=== PATIENT | female | born 1960 | race Caucasian/White ===

== ENCOUNTER 2019-08-06 07:15 | Emergency (ER) | payer OTHER ==
[2019-08-06 07:28] VITALS: PULSE 75; TEMP 98.1
[2019-08-06] MEDS ORDERED: HYDROcodone/APAP 5-325MG 1 EACH TAB PO STA (07:36)
--- NOTE | 2019-08-06 07:40 | ED ---
Lower Extremity Injury HPI - General Chief Complaint: Extremity Injury, Lower Stated Complaint: L Knee Swelling Time Seen by Provider: 08/06/19 07:30 Source: patient, RN notes reviewed Mode of arrival: wheelchair Limitations: no limitations - History of Present Illness Initial Comments: This a 59-year-old female presents emergency Department chief complaint of left leg and knee pain. Patient states that has been bothersome or last couple days denies any trauma. Patient does admit that she has a large amount of varicose pains her left leg but has no history of DVT. Patient denies any chest pain or shortness breath. She states that she did take some Motrin last night she had minimal relief of symptoms. She did state that she elevated and iced it which improved her swelling. Patient states that she had no prior imaging her left leg including ultrasound or x-ray. Patient denies trauma she does admit that walking makes her symptoms worse. - Related Data Home Medications Medication Instructions Recorded Confirmed Ibuprofen [Motrin] 800 mg PO Q6H PRN 08/06/19 08/06/19 Turmeric Root Extract [Turmeric] 500 mg PO DAILY 08/06/19 08/06/19 Allergies Allergy/AdvReac Type Severity Reaction Status Date / Time No Known Allergies Allergy Verified 08/06/19 08:09 Review of Systems ROS Statement: Those systems with pertinent positive or pertinent negative responses have been documented in the HPI. ROS Other: All systems not noted in ROS Statement are negative. Past Medical History Past Medical History: No Reported History History of Any Multi-Drug Resistant Organisms: None Reported Past Surgical History: Section Additional Past Surgical History / Comment(s): carpal tunnel surgery Past Psychological History: No Psychological Hx Reported Smoking Status: Current every day smoker Past Alcohol Use History: None Reported Past Drug Use History: Marijuana General Exam Limitations: no limitations General appearance: alert, in no apparent distress Head exam: Present: atraumatic, normocephalic, normal inspection Respiratory exam: Present: normal lung sounds bilaterally. Absent: respiratory distress, wheezes, rales, rhonchi, stridor Cardiovascular Exam: Present: regular rate, normal rhythm, normal heart sounds. Absent: systolic murmur, diastolic murmur, rubs, gallop, clicks Extremities exam: Present: other (Left knee patient reports some tenderness palpation medial and posterior aspect there is swelling noted of the left leg. Pulses are equal bilaterally there is minimal calf tenderness. Patient has full range of motion of the left hip left knee and left ankle.) Course Vital Signs 08/06/19 07:25 Temperature 98.1 F Pulse Rate 75 Respiratory 18 Rate Blood Pressure 129/83 O2 Sat by Pulse 96 Oximetry Medical Decision Making - Medical Decision Making This a 59-year-old female presented for left knee and leg pain. Patient ultrasound and x-ray. All son shows no evidence of acute DVT does show evidence of a Armstrong's cyst. X-ray is essentially unremarkable. She has neurovascular intact. Patient will follow-up with orthopedics as needed patient advised continued anti-inflammatories. Return parameters were discussed. Disposition Clinical Impression: Left knee pain, Synovial cyst of popliteal space [Armstrong], left knee Disposition: HOME SELF-CARE Condition: Stable Instructions (If sedation given, give patient instructions): Bakers Cyst (ED) Additional Instructions: Please return to the Emergency Department if symptoms worsen or any other concerns. Is patient prescribed a controlled substance at d/c from ED?: No Referrals: None,Stated [Primary Care Provider] - 1-2 days Edmar Lambert MD [STAFF PHYSICIAN] - 1-2 days Time of Disposition: 08:55
--- NOTE | 2019-08-06 08:04 | US ---
EXAMINATION TYPE: US venous doppler duplex LE LT DATE OF EXAM: 08/06/2019 7:57 AM COMPARISON: NONE CLINICAL HISTORY: left knee pain and leg swelling. Pt states left leg pain and swelling x 1 1/2 weeks SIDE PERFORMED: Left TECHNIQUE: The lower extremity deep venous system is examined utilizing real time linear array sonog celina with graded compression, doppler sonography and color-flow sonography. VESSELS IMAGED: External Iliac Vein (EIV) Common Femoral Vein Deep Femoral Vein Greater Saphenous Vein * Femoral Vein Popliteal Vein Small Saphenous Vein * Proximal Calf Veins (* superficial vessels) Left Leg: Negative for DVT, Probable Armstrong's cyst left pop fossa= 4.6 x 0.7 x 2.1 cm Grayscale, color doppler, spectral doppler imaging performed of the deep veins of the left lower extr emity. There is normal flow, compressibility, vascular waveforms. IMPRESSION: No ultrasound evidence for acute DVT in the left lower extremity. Small popliteal cyst i s marked towards end of study.
--- NOTE | 2019-08-06 08:22 | XR ---
Left knee HISTORY: Swelling, pain 3 views the left knee Bone mineralization, joint spaces, alignment are maintained. No fracture or dislocation. No evident j oint effusion. Suspect vascular calcifications are present. IMPRESSION: No acute abnormality is evident.
[2019-08-06] MEDS ORDERED: ACET/COD 300 MG/30 MG STARTER PACK 6 TAB BTL PO STA (08:55)
[2019-08-06 09:07] VITALS: BP 125/80; RESP 16
== END 2019-08-06 09:03 | disposition home or self-care (01) ==
LOC: EC 07:15
DX: M71.22 Synovial cyst of popliteal space [Baker], left knee (principal); F17.200 Nicotine dependence, unspecified, uncomplicated; Z53.29 Procedure and treatment not carried out because of patient's decision for other reasons; Z79.899 Other long term (current) drug therapy
CPT/HCPCS: 99284

== ENCOUNTER → 2021-07-30 | Outpatient (CLI) | payer OTHER ==
--- NOTE | 2021-07-30 07:49 | MR ---
EXAMINATION TYPE: MR knee LT wo con DATE OF EXAM: 07/30/2021 COMPARISON: Outside left knee x-ray June 03, 2021 HISTORY: Left knee pain and swelling x 2 years, no trauma. TECHNIQUE: Multiplanar, multisequence imaging of the left knee is performed without IV contrast. FINDINGS: MEDIAL MENISCUS: Abnormal medial meniscus. There is medial extrusion of medial meniscus with abnormal signal, there is globular and oblique component extends extending to central body from posterior hor n with fraying of the inferior margin. LATERAL MENISCUS: Anterior and posterior horns are intact without tear. CRUCIATE LIGAMENTS: The anterior and posterior cruciate ligaments are intact and unremarkable. COLLATERAL LIGAMENTS: The medial collateral ligament and lateral collateral ligament complex are inta ct. Medial extruded medial meniscus abuts the medial collateral ligament deeper fibers. EXTENSOR MECHANISM: Visualized quadriceps and patellar tendons are intact. EFFUSION: Small suprapatellar joint effusion. POPLITEAL CYST: Moderate size multiseptated popliteal/dutta cyst measuring 5.2 cm long axis sagittal image 25. TRICOMPARTMENT SPACES: Mild to moderate tricompartment joint space loss and mild tricompartment spurr ing. CARTILAGE: Thinning articular cartilage along posterior patellar pole. No full-thickness loss seen. C artilaginous thinning medial tibiofemoral compartment. BONE MARROW SIGNAL: In the distal lateral femoral condyle there is serpiginous low T1 and increased T 2 signal along the posterior aspect extending to the joint space sagittal image 12 for reference. No radiographic correlate clearly seen. No bony fragmentation. Lesion measures roughly 2.5 x 0.7 x 1.3 c m coronal image 22 and sagittal image 12. OTHER: No additional significant abnormality is appreciated. IMPRESSION: 1. Complex full-thickness tear involving central body and posterior horn medial meniscus. 2. Mild to moderate tricompartment degenerative changes as detailed above. 3. Small prepatellar joint effusion. 4. Moderate-sized multiseptated popliteal cyst. 5. Indeterminate lesion suspect chronic subchondral insufficiency fracture versus small bone infarct distal lateral femoral condyle level. No bony fragmentation noted.
== END | disposition home or self-care (01) ==
LOC: RADMRIMAIN 06:52
PROVIDERS: ATTEND Orthopaedic Surgery
DX: M23.322 Other meniscus derangements, posterior horn of medial meniscus, left knee (principal); M17.12 Unilateral primary osteoarthritis, left knee; M71.22 Synovial cyst of popliteal space [Baker], left knee

== ENCOUNTER 2021-09-08 01:14 | Emergency (ER) | payer OTHER ==
[2021-09-08 01:22] VITALS: TEMP 97.9
[2021-09-08] MEDS ORDERED: SODIUM CHLORIDE 0.9% 1,000 ML IV STA (01:31)
[2021-09-08] MEDS ORDERED: KETOROLAC 15 MG/ML 1 ML VIAL IVP STA (01:31)
[2021-09-08] MEDS ORDERED: ACETAMINOPHEN TAB 500 MG TAB PO STA (01:31)
[2021-09-08] MEDS ORDERED: DEXAMETHASONE SOD PHOSPHATE 10 MG/ML 1 ML VIAL IV STA (01:31)
--- NOTE | 2021-09-08 01:32 | ED ---
Recheck HPI - General Chief Complaint: Upper Respiratory Infection Stated Complaint: Headache, Covid+ Time Seen by Provider: 09/08/21 01:26 Source: patient, RN notes reviewed, old records reviewed Mode of arrival: ambulatory Limitations: no limitations - History of Present Illness Initial Comments: This is a 61-year-old female to the emergency department for evaluation of coronavirus. Patient has no history of coronavirus and presenting for evaluatio n of coronavirus today. Worsening symptoms worsening bodyaches and pains and fever. Some shortness of breath. MD Complaint: wound re-check, abnormal lab (Positive for coronavirus) -: days(s) Returns Today for: persistent/worsening pain related to initial visit Symptoms Since Prior Visit: no new symptoms Context: called for abnormal lab result Associated Symptoms: fever, chills, shortness of breath Treatments Prior to Arrival: home treatments - Related Data Home Medications Medication Instructions Recorded Confirmed Ibuprofen [Motrin] 800 mg PO Q6H PRN 08/06/19 08/06/19 Turmeric Root Extract [Turmeric] 500 mg PO DAILY 08/06/19 08/06/19 Allergies Allergy/AdvReac Type Severity Reaction Status Date / Time No Known Allergies Allergy Verified 09/08/21 01:22 Review of Systems ROS Statement: Those systems with pertinent positive or pertinent negative responses have been documented in the HPI. ROS Other: All systems not noted in ROS Statement are negative. Past Medical History Past Medical History: No Reported History History of Any Multi-Drug Resistant Organisms: None Reported Past Surgical History: Section Additional Past Surgical History / Comment(s): carpal tunnel surgery Past Psychological History: No Psychological Hx Reported Smoking Status: Current every day smoker Past Alcohol Use History: None Reported Past Drug Use History: Marijuana General Exam Limitations: no limitations General appearance: alert, in no apparent distress Head exam: Present: atraumatic, normocephalic, normal inspection Eye exam: Present: normal appearance, PERRL, EOMI. Absent: scleral icterus, conjunctival injection, periorbital swelling ENT exam: Present: normal exam, mucous membranes moist Neck exam: Present: normal inspection. Absent: tenderness, meningismus, lymphadenopathy Respiratory exam: Present: normal lung sounds bilaterally. Absent: respiratory distress, wheezes, rales, rhonchi, stridor Cardiovascular Exam: Present: regular rate, normal rhythm, normal heart sounds. Absent: systolic murmur, diastolic murmur, rubs, gallop, clicks GI/Abdominal exam: Present: soft, normal bowel sounds. Absent: distended, tenderness, guarding, rebound, rigid Extremities exam: Present: normal inspection, full ROM, normal capillary refill. Absent: tenderness, pedal edema, joint swelling, calf tenderness Back exam: Present: normal inspection Neurological exam: Present: alert, oriented X3, CN II-XII intact Psychiatric exam: Present: normal affect, normal mood Skin exam: Present: warm, dry, intact, normal color. Absent: rash Course Vital Signs 09/08/21 09/08/21 09/08/21 01:18 03:00 04:49 Temperature 97.9 F Pulse Rate 79 74 70 Respiratory 20 18 18 Rate Blood Pressure 125/79 117/73 120/71 O2 Sat by Pulse 96 98 96 Oximetry - Reevaluation(s) Reevaluation #1: 1Medical record is reviewed Patient symptoms are significantly improved Patient family informed results questions answered Medical Decision Making - Medical Decision Making 61 female positive for coronavirus. No other significant acute distress. Patient can be discharged home - Lab Data Result diagrams: 09/08/21 01:38 09/08/21 01:38 Lab Results 09/08/21 09/08/21 Range/Units 01:38 01:38 WBC 4.6 (3.8-10.6) k/uL RBC 4.12 (3.80-5.40) m/uL Hgb 13.5 (11.4-16.0) gm/dL Hct 39.0 (34.0-46.0) % MCV 94.5 (80.0-100.0) fL MCH 32.7 (25.0-35.0) pg MCHC 34.5 (31.0-37.0) g/dL RDW 13.8 (11.5-15.5) % Plt Count 221 (150-450) k/uL MPV 7.5 Neutrophils % 44 % Lymphocytes % 44 % Monocytes % 5 % Eosinophils % 3 % Basophils % 1 % Neutrophils # 2.0 (1.3-7.7) k/uL Lymphocytes # 2.0 (1.0-4.8) k/uL Monocytes # 0.2 (0-1.0) k/uL Eosinophils # 0.1 (0-0.7) k/uL Basophils # 0.0 (0-0.2) k/uL Sodium 138 (137-145) mmol/L Potassium 3.8 (3.5-5.1) mmol/L Chloride 111 H (98-107) mmol/L Carbon Dioxide 21 L (22-30) mmol/L Anion Gap 6 mmol/L BUN 13 (7-17) mg/dL Creatinine 0.50 L (0.52-1.04) mg/dL Est GFR (CKD-EPI)AfAm >90 (>60 ml/min/1.73 sqM) Est GFR (CKD-EPI)NonAf >90 (>60 ml/min/1.73 sqM) Glucose 105 H (74-99) mg/dL Calcium 8.1 L (8.4-10.2) mg/dL Magnesium 1.9 (1.6-2.3) mg/dL Total Bilirubin <0.1 L (0.2-1.3) mg/dL AST 27 (14-36) U/L ALT 19 (4-34) U/L Alkaline Phosphatase 51 (38-126) U/L Lactate Dehydrogenase 440 (313-618) U/L C-Reactive Protein 0.5 (<1.0) mg/dL Total Protein 5.6 L (6.3-8.2) g/dL Albumin 3.1 L (3.5-5.0) g/dL - Radiology Data Radiology results: report reviewed (Chest x-rays negative for acute disease), image reviewed Disposition Clinical Impression: Coronavirus infection Disposition: HOME SELF-CARE Condition: Good Instructions (If sedation given, give patient instructions): Coronavirus Disease 2019 (COVID-19) Is patient prescribed a controlled substance at d/c from ED?: No Referrals: None,Stated [Primary Care Provider] - 1-2 days
--- NOTE | 2021-09-08 02:05 | XR ---
EXAMINATION TYPE: XR chest 1V portable DATE OF EXAM: 09/08/2021 COMPARISON: 08/26/2010 HISTORY: Cough and fever TECHNIQUE: FINDINGS: Heart and mediastinum are normal. Lungs are clear of infiltrate. There is no pleural effusi on. There are no hilar masses. Bony thorax is intact. IMPRESSION: Normal chest. No change.
[2021-09-08 02:08] LABS: Basophils % (A) 1 %; Eosinophils # (A) 0.1 k/uL (0-0.7); Eosinophils % (A) 3 %; HGB 13.5 gm/dL (11.4-16.0); Lymphocytes % (A) 44 %; MCH 32.7 pg (25.0-35.0); MCHC 34.5 g/dL (31.0-37.0); MCV 94.5 fL (80.0-100.0); Mean Platelet Volume 7.5; Monocytes # (A) 0.2 k/uL (0-1.0); Monocytes % (A) 5 %; Neutrophils % (A) 44 %; Platelet Count 221 k/uL (150-450); RBC 4.12 m/uL (3.80-5.40); RDW 13.8 % (11.5-15.5); WBC 4.6 k/uL (3.8-10.6)
[2021-09-08 02:26] LABS: ALT 19 U/L (4-34); AST 27 U/L (14-36); African American GFR (CKD) >90 (>60 ml/min/1.73 sqM); Albumin 3.1 g/dL (3.5-5.0); Alkaline Phosphatase 51 U/L (38-126); Anion Gap 6 mmol/L; Blood Urea Nitrogen 13 mg/dL (7-17); C Reactive Protein 0.5 mg/dL (<1.0); Calcium 8.1 mg/dL (8.4-10.2); Carbon Dioxide 21 mmol/L (22-30); Chloride 111 mmol/L (98-107); Glucose 105 mg/dL (74-99); LDH 440 U/L (313-618); Magnesium 1.9 mg/dL (1.6-2.3); Non-African American GFR(CKD) >90 (>60 ml/min/1.73 sqM); Potassium 3.8 mmol/L (3.5-5.1); Sodium 138 mmol/L (137-145); Total Bilirubin <0.1 mg/dL (0.2-1.3); Total Protein 5.6 g/dL (6.3-8.2)
[2021-09-08] MEDS ORDERED: CASIRIVIMAB (REGN10933) (EUA) 600 MG, IMDEVIMAB (REGN10987) (EUA) 600 MG in SODIUM CHLO... IVPB ONE (03:00)
[2021-09-08] MEDS ORDERED: SODIUM CHLORIDE 0.9% 50 ML IVPB ONE (03:00)
[2021-09-08 04:49] VITALS: RESP 18
[2021-09-08 04:50] VITALS: BP 120/71; PULSE 70
== END 2021-09-08 04:50 | disposition home or self-care (01) ==
LOC: EC 01:14
DX: U07.1 COVID-19 (principal); F17.200 Nicotine dependence, unspecified, uncomplicated; F12.90 Cannabis use, unspecified, uncomplicated
CPT/HCPCS: 99285; 96365; 96375 ×2; 96361; 36415; 80053; 83615; 83735; 85025; 86140; 71045; J1100; J1885; Q0243

== ENCOUNTER → 2021-09-20 | Outpatient (CLI) | payer OTHER ==
[2021-09-20 09:40] LABS: Basophils # (A) 0.1 k/uL (0-0.2); Basophils % (A) 0 %; Eosinophils # (A) 0.2 k/uL (0-0.7); Eosinophils % (A) 1 %; HCT 38.8 % (34.0-46.0); HGB 12.9 gm/dL (11.4-16.0); Lymphocytes # (A) 2.8 k/uL (1.0-4.8); Lymphocytes % (A) 22 %; MCH 32.2 pg (25.0-35.0); MCHC 33.3 g/dL (31.0-37.0); MCV 96.6 fL (80.0-100.0); Mean Platelet Volume 7.4; Monocytes # (A) 0.5 k/uL (0-1.0); Monocytes % (A) 4 %; Neutrophils # (A) 9.2 k/uL (1.3-7.7); Neutrophils % (A) 71 %; Platelet Count 340 k/uL (150-450); RBC 4.01 m/uL (3.80-5.40); RDW 13.6 % (11.5-15.5); WBC 12.9 k/uL (3.8-10.6)
[2021-09-20 10:10] LABS: Potassium 4.1 mmol/L (3.5-5.1)
== END | disposition home or self-care (01) ==
LOC: LABPAT 08:51
PROVIDERS: ATTEND Orthopaedic Surgery
DX: Z01.812 Encounter for preprocedural laboratory examination (principal)
CPT/HCPCS: 36415; 80051; 85025; 93005

== ENCOUNTER 2021-09-29 11:27 | Day surgery (SDC) | payer OTHER ==
[~2021-09-29 11:27] MED LIST: DEXAMETHASONE SOD PHOSPHATE 4 MG/ML 1 ML VIAL IV ONE; LACTATED RINGERS 1,000 ML IV SCH; LIDOCAINE 1% (10MG/ML) FOR IV START INTRADERMA PRN; MIDAZOLAM 2 MG/2 ML VIAL IV PRN; ONDANSETRON 4 MG/2 ML VIAL IVP ONE
--- NOTE | 2021-09-29 11:31 | HP ---
HISTORY AND PHYSICAL CHIEF COMPLAINT: Left knee pain. 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 She notes medial pain along with swelling, catching and giving way. She notes it bothers her daily. She has tried previous medications in addition to an injection, with only partial temporary relief. PAST MEDICAL HISTORY: Negative. PAST SURGICAL HISTORY: Significant for section and carpal tunnel release. CURRENT MEDICATIONS: Ibuprofen. ALLERGIES: SHE DENIES DRUG ALLERGIES. FAMILY HISTORY: Significant for heart disease and cancer. SOCIAL HISTORY: Significant for 1/4 pack per day tobacco use. REVIEW OF SYSTEMS: Sixteen-point review of systems otherwise reviewed and is noncontributory. PHYSICAL EXAMINATION: On examination, the patient is approximately 5 feet 3 inches, 160 pounds of mesomorphic habitus. HEENT exam is nonfocal. Neck is supple. She has painless passive motion of her left hip. Straight-leg raise is negative. Active motion of left knee: Minus 10 to 105 degrees of flexion. She has mild effusion. She is tender about the medial joint line. Collaterals are stable. Fidelina is negative. Roderick's elicits medial pain. Her distal neurovascular exam appears intact in the left lower extremity. MRI report left knee 07/30/2021 shows evidence of a posteromedial meniscal tear in addition to lateral femoral condyle edema. IMPRESSION: 1. Internal derangement of left knee with symptomatic medial meniscal tear. 2. Left knee moderate medial compartment osteoarthrosis. RECOMMENDATIONS: I talked to the patient at length regarding her condition along with treatment options. She is having significant pain and mechanical symptoms despite previous conservative measures. After thorough discussion, she opted to proceed with surgery. We will plan to proceed with left knee arthroscopy with probable partial medial meniscectomy. Risks and benefits were discussed at length in layman's terms. We will likely perform that as an outpatient procedure. MMODL / IJN: [id number] /
[2021-09-29] MEDS ORDERED: PROPOFOL 10 MG/ML 20 ML VIAL IV ONE (12:52)
[2021-09-29] MEDS ORDERED: LIDOCAINE 1% INJ 10MG/ML (20 ML MDV) ONE (12:52)
[2021-09-29] MEDS ORDERED: fentaNYL (PF) 50 MCG/ML 2 ML AMP ONE (12:52)
[2021-09-29] MEDS ORDERED: KETOROLAC 15 MG/ML 1 ML VIAL ONE (12:52)
[2021-09-29] MEDS ORDERED: MIDAZOLAM 2 MG/2 ML VIAL ONE (12:52)
--- NOTE | 2021-09-29 13:43 | P.OP ---
Date of Procedure: 09/29/21 Preoperative Diagnosis: Left knee internal derangement Postoperative Diagnosis: Left knee posterior medial meniscal tear Procedure(s) Performed: Left knee arthroscopic partial medial meniscectomy Anesthesia: GUIA Surgeon: Teo Marshall Estimated Blood Loss (ml): 10 Pathology: none sent Condition: stable Disposition: PACU Indications for Procedure: The patient's a 61-year-old female presents with progressive left knee pain and mechanical symptoms despite conservative measures. A discussion of the risks and benefits of operative intervention versus continued conservative measures was made with patient. She to proceed with surgery. Operative risks to include infection, neurovascular injury, development blood clots, possible incomplete resolution of symptoms, possible worsening symptoms and need for subsequent procedures was discussed. Informed consent was obtained. Operative Findings: As below Description of Procedure: The patient was brought to the operating room, and after induction of general anesthesia examined the left knee. Collaterals were stable, Fidelina was negative, and posterior drawer was negative. The left lower extremity was prepped and draped in a normal fashion. A superior lateral portal was made through a 3 mm skin incision superior and lateral to the patella. This was used for outflow. A lateral portal was made through a 5 mm vertical skin incision lateral to the patella tendon above the joint line. Diagnostic arthroscopy was performed. On inspection of the medial compartment, a complex tear involving the posterior horn of the medial meniscus in the white-red junction was noted. This was debrided back to stable base with straight baskets and a motorized shaver. Grade 2-3 chondral changes were noted diffusely in the medial compartment. On inspection of the notch, the anterior cruciate ligament appeared to be intact. On inspection of the lateral compartment, no significant meniscal or cartilage pathology was noted. On inspection of the patellofemoral articulation, there is chondral fibrillation and degenerative changes however no loose chondral fragments.. The gutters were clear debris. The knee was then thoroughly irrigated. The portals were closed with Steri- Strips. A sterile dressing was applied in addition to a compression stocking. The patient was awoken from general anesthesia and transferred to recovery room in good condition. Blood loss was estimated at 10 mL. No complications were incurred.
[2021-09-29] MEDS: HYDROmorphone 0.5 MG/0.5 ML SYRINGE IVP PRN ×3 (14:06→14:23)
[2021-09-29 14:14] VITALS: TEMP 96.8
[2021-09-29 15:05] VITALS: RESP 18
[2021-09-29 15:08] VITALS: BP 116/73; PULSE 77
== END 2021-09-29 15:28 | disposition home or self-care (01) ==
LOC: OR 11:27
PROVIDERS: ATTEND Orthopaedic Surgery
DX: Z98.891 History of uterine scar from previous surgery (principal); M23.92 Unspecified internal derangement of left knee; Z98.890 Other specified postprocedural states; Z79.1 Long term (current) use of non-steroidal anti-inflammatories (NSAID); Z82.49 Family history of ischemic heart disease and other diseases of the circulatory system; Z80.9 Family history of malignant neoplasm, unspecified; F17.210 Nicotine dependence, cigarettes, uncomplicated; Z88.5 Allergy status to narcotic agent; Z88.8 Allergy status to other drugs, medicaments and biological substances; Z97.2 Presence of dental prosthetic device (complete) (partial)
CPT/HCPCS: 29881; J2250; J1100; J2405; J0690; J2001; J3010; J1885; J2704; J1170

== ENCOUNTER 2024-06-08 21:33 | Emergency (ER) | payer OTHER ==
[2024-06-08 22:37] VITALS: RESP 18; TEMP 97.2
--- NOTE | 2024-06-09 00:11 | ED ---
Extremity Problem HPI - General Chief complaint: Skin/Abscess/Foreign Body Stated complaint: Right foot injury Time Seen by Provider: 06/08/24 23:39 Source: patient, RN notes reviewed Mode of arrival: ambulatory Limitations: no limitations - History of Present Illness Initial comments: This is a 64-year-old female who presents to the emergency department for right foot pain. States that last night she was walking around with her flip-flops on and at one point while she was walking she developed a severe pain going to the right heel. States that this felt like a knife stabbing her in the foot. She since had pain with ambulation to the heel. States that she noticed a dark spot on the foot and wonders if this may be something that went inside of the foot, however this is not where the pain is located. MD Complaint: extremity pain - Related Data Home Medications Medication Instructions Recorded Confirmed Ibuprofen [Motrin] 800 mg PO Q6H PRN 08/06/19 09/29/21 Turmeric Root Extract [Turmeric] 500 mg PO DAILY 08/06/19 09/29/21 Loratadine [Claritin] 1 tab PO DAILY 09/29/21 09/29/21 Previous Rx's Medication Instructions Recorded Ibuprofen 600 mg PO Q8H #60 tab 09/29/21 Allergies Allergy/AdvReac Type Severity Reaction Status Date / Time codeine AdvReac Itching Verified 09/29/21 12:04 Review of Systems ROS Statement: Those systems with pertinent positive or pertinent negative responses have been documented in the HPI. ROS Other: All systems not noted in ROS Statement are negative. Past Medical History Past Medical History: No Reported History History of Any Multi-Drug Resistant Organisms: None Reported Past Surgical History: Section Additional Past Surgical History / Comment(s): carpal tunnel surgery Past Psychological History: No Psychological Hx Reported Smoking Status: Current every day smoker Past Alcohol Use History: None Reported Past Drug Use History: Marijuana General Exam Limitations: no limitations General appearance: alert, in no apparent distress Head exam: Present: atraumatic, normocephalic, normal inspection Respiratory exam: Present: normal lung sounds bilaterally. Absent: respiratory distress, wheezes, rales, rhonchi, stridor Cardiovascular Exam: Present: regular rate, normal rhythm, normal heart sounds. Absent: systolic murmur, diastolic murmur, rubs, gallop, clicks Extremities exam: Present: other (No deformities, swelling, or ecchymosis to the right foot. There was a small black dot that wiped away, otherwise no obvious foreign bodies. Full range of motion. 2+ DP and PT pulses.) Neurological exam: Present: alert, oriented X3, CN II-XII intact Psychiatric exam: Present: normal affect, normal mood Course Vital Signs 06/08/24 06/09/24 22:28 00:48 Temperature 97.2 F L Pulse Rate 75 72 Respiratory 18 18 Rate Blood Pressure 133/82 125/98 O2 Sat by Pulse 95 95 Oximetry Medical Decision Making - Medical Decision Making This is a 64 year old female who presents to the emergency department for right foot pain. Was pt. sent in by a medical professional or institution? @ -No Did you speak to anyone other than the patient for history? @ -No Did you review nursing and triage notes? @ -Yes, and I agree, it is accurate with regards to the patient's symptoms. Were old charts reviewed? @ -No Differential Diagnosis? @ -Differential Musculoskeletal: Muscular strain, contusion, ligament sprain, fracture, arthritis, septic arthritis, bursitis, cellulitis, muscle spasm, nerve compression, DVT, arterial occlusion, herpes zoster, electrolyte abnormality, tumor.... This is not meant to be in all inclusive list EKG interpreted by me (3pts min.)? @ -Not obtained X-rays interpreted by me (1pt min.)? @ -X-ray of the right foot obtained. My interpretation identifies no acute fractures. CT interpreted by me (1pt min.)? @ -Not obtained U/S interpreted by me (1pt. min.)? @ -Not obtained What testing was considered but not performed? (CT, X-rays, U/S, labs)? Why? @ -None What meds were considered but not given? Why? @ -None Did you discuss the management of the patient with other professionals? @ -No Did you reconcile home meds? @ -No Was smoking cessation discussed for >3mins.? @ -I discussed smoking cessation for greater than 3 minutes. The risk of s moking were discussed with the patient including but not limited to risks of cancer, stroke, coronary artery disease and COPD. Also discussed with patient were multiple methods of quitting smoking. Lastly we discussed the financial cost of smoking. Was critical care preformed (if so, how long)? @ -No Were there social determinants of health that impacted care today? How? (Homelessness, low income, unemployed, alcoholism, drug addiction, transportation, low edu. Level, literacy, decrease access to med. care, longterm, rehab)? @ -No Was there de-escalation of care discussed even if they declined? (Discuss DNR or withdrawal of care, Hospice)? @ -No What co-morbidities impacted this encounter? (DM, HTN, Smoking, COPD, CAD, Cancer, CVA, Hep., AIDS, mental health diagnosis, sleep apnea, morbid obesity)? @ -Smoking Was patient admitted / discharged? @ -Discharged. X-ray of the right foot obtained revealing no acute process. She has noted to have a heel spur. Toradol administered for pain relief. On exam there was a black dot that could have been a foreign body, however this wiped right off and was more so suggestive of a piece of dirt. Physical examination was otherwise unremarkable aside from tenderness. I did offer a hard sole velcro shoe, however she declined. Advised to continue with ibuprofen and Tylenol and follow-up with her primary care provider. Undiagnosed new problem with uncertain prognosis? @ -None Drug Therapy requiring intensive monitoring for toxicity (Heparin, Nitro, Insulin, Cardizem)? @ -None Were any procedures done? @ -None Diagnosis/symptom? @ -Right foot pain, heel spur Acute, or Chronic, or Acute on Chronic? @ -Acute Uncomplicated (without systemic symptoms) or Complicated (systemic symptoms)? @ -Uncomplicated Side effects of treatment? @ -None Exacerbation, Progression, or Severe Exacerbation] @ -Not applicable Poses a threat to life or bodily function? @ -No Return precautions reviewed in depth, the patient is instructed to return to the emergency department with any new, worsening, or concerning symptoms. Patient verbalized understanding. This case was discussed in detail with the attending ED physician, Dr. Mitchell. Presentation, findings, and treatment plan discussed in detail as well. - Radiology Data Radiology results: report reviewed, image reviewed Disposition Clinical Impression: Pain of right heel, Heel spur Disposition: HOME SELF-CARE Instructions (If sedation given, give patient instructions): Heel Spur (ED) Additional Instructions: Return to the emergency department with any new, worsening, or concerning symptoms. Alternate with ibuprofen and Tylenol as needed for pain relief. Follow up with your primary care provider in 1-2 days. Is patient prescribed a controlled substance at d/c from ED?: No Referrals: None,Stated [Primary Care Provider] - 1-2 days Time of Disposition: 12:41
--- NOTE | 2024-06-09 00:27 | XR ---
EXAM: XR Right Foot Complete, 3 or More Views CLINICAL HISTORY: ITS.REASON XR Reason: Stepped on something, pain in heel TECHNIQUE: Frontal, lateral and oblique views of the right foot. COMPARISON: No relevant prior studies available. FINDINGS: Bones/joints: Diffuse osseous demineralization. No acute fracture or subluxation. Soft tissues: Unremarkable. No radiopaque foreign body. Other findings: Heel spur measures 6 mm. IMPRESSION: No acute fracture or subluxation.
[2024-06-09] MEDS: DEXAMETHASONE SOD PHOSPHATE 10 MG/ML 1 ML VIAL IM STA (00:30)
[2024-06-09] MEDS: KETOROLAC 15 MG/ML 1 ML VIAL IM STA (00:30)
[2024-06-09 00:53] VITALS: BP 125/98; PULSE 72
== END 2024-06-09 00:53 | disposition home or self-care (01) ==
LOC: EC 21:33
DX: M77.31 Calcaneal spur, right foot (principal); F17.200 Nicotine dependence, unspecified, uncomplicated; F12.90 Cannabis use, unspecified, uncomplicated; Z88.5 Allergy status to narcotic agent
CPT/HCPCS: 73630; 99283; 96372 ×2; 99406; J1100; J1885